=== PATIENT | male | born 1950 | race Caucasian/White ===

== ENCOUNTER 2019-06-24 03:00 | Emergency (ER) | payer MEDICARE, OTHER ==
[~2019-06-24] VITALS: Ht 162.6 cm; Wt 70.3 kg
[~2019-06-24 03:00] MED LIST: AMLO10TA PO; METO50TA20 PO
[2019-06-24 03:12] VITALS: BP 177/116
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
[2019-06-24] MEDS ORDERED: KETOROLAC 60 MG/2 ML VIAL IM ONE (03:20)
[2019-06-24 04:26] VITALS: BP 155/100
== END 2019-06-24 04:26 | disposition home or self-care (01) ==
LOC: MED 03:00
DX: M79.18 Myalgia, other site (principal); I10 Essential (primary) hypertension; Z79.899 Other long term (current) drug therapy; V89.2XXA Person injured in unspecified motor-vehicle accident, traffic, initial encounter; Y93.89 Activity, other specified; Y92.410 Unspecified street and highway as the place of occurrence of the external cause; Y99.8 Other external cause status
CPT/HCPCS: 96372; 99283; J1885

== ENCOUNTER 2019-09-10 18:15 | Emergency (ER) | payer OTHER, MEDICARE ==
[~2019-09-10] VITALS: Ht 162.6 cm; Wt 69.9 kg
[2019-09-10 18:50] VITALS: BP 142/81
--- NOTE | 2019-09-10 19:16 | NUR ---
PT AMBULATED TO BED 9
--- NOTE | 2019-09-10 19:30 | NUR ---
BIB SELF. C/O EPIGASTRIC PAIN X3 DAYS. 9/10 PAIN ON ADULT SCALE. BOWEL SOUNDS ACTIVE X4. ABDOMEN SOFT, ROUND, NON-TENDER UPON PALPATION. VSS. NO SOB. A/O X4. STEADY GAIT. NO NAUSEA, DIARRHEA. NKA PMH= HTN WHICH HE TAKES MEDICATION FOR, GALLSTONES.
[2019-09-10] MEDS ORDERED: KETOROLAC 60 MG/2 ML VIAL IM ONE (20:50)
[2019-09-10] MEDS ORDERED: FAMOTIDINE 20 MG TAB PO ONE (20:50)
[2019-09-10] MEDS ORDERED: ALUMINUM HYD/MAG/SIMETHICONE 30 ML UDC PO ONE (20:50)
[2019-09-10 23:16] VITALS: BP 142/81
== END 2019-09-10 23:16 | disposition home or self-care (01) ==
LOC: MED 18:15
DX: K29.70 Gastritis, unspecified, without bleeding (principal); K29.00 Acute gastritis without bleeding; Z79.899 Other long term (current) drug therapy
CPT/HCPCS: 96372; 99283; J1885